=== PATIENT | female | born 1970 | race Caucasian/White ===

== ENCOUNTER 2024-04-09 07:02 | Day surgery (SDC) | payer BC ==
[2024-03-31 15:46] LABS: BASOPHILS # (AUTO) 0.1 X10'3 (0-0.2); BASOPHILS % (AUTO) 0.7 % (0-1); EOSINOPHILS # (AUTO) 0.2 X10'3 (0-0.9); EOSINOPHILS % (AUTO) 2.3 % (0-6); LYMPHOCYTES # (AUTO) 3.4 X10'3 (1.1-4.8); LYMPHOCYTES % (AUTO) 45.6 % (21-51); MEAN CORPUSCULAR HEMOGLOBIN 30.2 PG (27.0-31.0); MEAN CORPUSCULAR VOLUME 88.8 FL (78-98); MONOCYTES # (AUTO) 0.6 X10'3 (0-0.9); MONOCYTES % (AUTO) 7.9 % (2-12); NEUTROPHILS # (AUTO) 3.2 X10'3 (1.8-7.7); NEUTROPHILS % (AUTO) 43.5 % (42-75); PRE OP HEMATOCRIT 38.7 % (35.0-45.0); PRE OP HEMOGLOBIN 13.2 g/dL (12.0-16.0); PRE OP PLATELET COUNT 335 X10'3 (140-440); PRE OP WHITE BLOOD COUNT 7.4 10'3 (4.8-10.8); RED BLOOD COUNT 4.36 X10'6 (4.20-5.60); RED CELL DISTRIBUTION WIDTH 12.6 % (11.5-14.5)
[2024-03-31 16:01] LABS: ALBUMIN 3.8 G/DL (3.4-5.0); ALKALINE PHOSPHATASE 80 IU/L (46-116); BLOOD UREA NITROGEN 18 MG/DL (7-18); BUN/CREATININE RATIO 22.5 (10.0-20.0); CALCIUM 9.1 MG/DL (8.5-10.1); CHLORIDE 104 MMOL/L (99-107); PRE OP ALT 36 U/L (30-65); PRE OP ANION GAP 3 (8-16); PRE OP AST 19 U/L (10-37); PRE OP BILIRUB, TOTAL 0.3 MG/DL (0.0-1.0); PRE OP GLUCOSE 121 MG/DL (70-104); PRE OP POTASSIUM 3.6 MMOL/L (3.4-5.1); PRE OP SODIUM 135 MMOL/L (135-145); TOTAL CARBON DIOXIDE 28.1 MMOL/L (24-32); TOTAL PROTEIN 7.7 G/DL (6.4-8.2); eGFR 75 ML/MIN
[~2024-04-09] VITALS: Ht 160 cm; Wt 57.7 kg
[2024-04-09] VITALS (10 sets, daily range): BP systolic 108–121; BP diastolic 42–82; PULSE 61–109; RESP 8–18; TEMP 98.2; O2SAT 96–99
[2024-04-09] MEDS: cefazolin 2gm/D5W 100mL 100 ML IV ONE (05:30)
[2024-04-09] MEDS ORDERED: midazolam 1 mg/ML 2ml injection ONE (08:10)
[2024-04-09] MEDS ORDERED: fentaNYL/PF 50MCG/1 ML 2ML syringe ONE (08:10)
[2024-04-09] MEDS ORDERED: ondansetron/PF 4mg/2ml inj ONE (08:11)
[2024-04-09] MEDS ORDERED: propofol inj 20 ML IV ONE (08:11)
[2024-04-09] MEDS ORDERED: ROSU40TA PO (08:12)
[2024-04-09] MEDS ORDERED: PANT-47 PO (08:12)
[2024-04-09] MEDS ORDERED: LORA-268 PO (08:12)
[2024-04-09] MEDS ORDERED: RIME75TA PO (08:12)
[2024-04-09] MEDS ORDERED: ACET-1025 PO (08:12)
[2024-04-09] MEDS: ringers solution, lacted 1,000 ML IV SCH ×2 (08:19→10:05)
[2024-04-09] MEDS: famotidine 20mg tablet PO ONE (08:19)
[2024-04-09] MEDS ORDERED: desflurane 240ml liquid inh. IH ONE (08:40)
[2024-04-09] MEDS ORDERED: meperidine/PF 25mg/ml syringe ONE (09:07)
[2024-04-09] MEDS ORDERED: LIDOcaine 1%/PF 5ML 10 MG/ML VIAL ONE (09:19)
[2024-04-09] MEDS: LIDOcaine 1% (10mg/ml)w/preservative inj. 20ml MDV ONE (09:39)
[2024-04-09] MEDS: BUPIVAcaine 2.5mg/ml inj 50ml vial (contains preservative) ONE (09:39)
[2024-04-09] MEDS ORDERED: ketorolac trometh 30MG/ML vial 30 MG/ML VIAL ONE (09:41)
[2024-04-09] MEDS ORDERED: ondansetron/PF 4mg/2ml inj IV PRN (10:05)
[2024-04-09] MEDS ORDERED: meperidine/PF 25mg/ml syringe IV PRN ×2 (10:05)
[2024-04-09] MEDS ORDERED: proMETHazine 25mg rectal suppository RC PRN (10:05)
[2024-04-09] MEDS ORDERED: labetalol 20mg/4ml (5mg/ml) syringe IV PRN (10:05)
[2024-04-09] MEDS ORDERED: midazolam 1 mg/ML 2ml injection IV STA (10:38)
== END 2024-04-09 11:25 | disposition home or self-care (01) ==
LOC: PRE-OP 07:02
PROVIDERS: ATTEND Surgery
DX: R92.8 Other abnormal and inconclusive findings on diagnostic imaging of breast (principal); R92.2 Inconclusive mammogram; N60.11 Diffuse cystic mastopathy of right breast; N60.12 Diffuse cystic mastopathy of left breast; K21.9 Gastro-esophageal reflux disease without esophagitis; F41.9 Anxiety disorder, unspecified; Z87.442 Personal history of urinary calculi; Z79.899 Other long term (current) drug therapy; Z90.49 Acquired absence of other specified parts of digestive tract; Z98.891 History of uterine scar from previous surgery; Z88.2 Allergy status to sulfonamides
CPT/HCPCS: 19301; 36415; 80053; 82948; 85025; J0690; J1100; J1885; J2175; J2250; J2405; J2704; J3010; J3490; J7030; J7120; Z7506; Z7508; Z7512; A4215; A4618; A6449; A7000